=== PATIENT | female | born 1990 | race Hispanic/Latino ===

== ENCOUNTER 2018-01-19 20:51 | Emergency (ER) | payer MEDICAID ==
[~2018-01-19 20:51] MED LIST: ASPI-1197 PO; FURO20TA6 GT; LISI-617 PO; METO-391 PO; PREN1TAB26 PO
[2018-01-19] MEDS ORDERED: ACETAMINOPHEN 325 MG TAB ONE (20:59)
[2018-01-19 21:03] LABS: BASOPHILS % (AUTO) 0.4 % (0.0-5.0); EOSINOPHILS % (AUTO) 2.4 % (0.0-8.0); HEMATOCRIT 38.2 % (36-48); LYMPHOCYTES % (AUTO) 23.5 % (21.0-51.0); MEAN CORPUSCULAR HEMOGLOBIN 29.3 pg (27.0-33.0); MEAN CORPUSCULAR HGB CONC 34.6 g/dL (32.0-36.0); MEAN CORPUSCULAR VOLUME 84.9 fL (79-99); MONOCYTES % (AUTO) 8.6 % (3.0-13.0); NEUTROPHILS % (AUTO) 65.1 % (40.0-77.0); PLATELET COUNT (AUTO) 268 K/uL (130-400); RED CELL DISTRIBUTION WIDTH 13.4 % (11.0-15.5); WHITE BLOOD COUNT (AUTO) 9.3 K/uL (4.8-10.8)
[2018-01-19 21:09] LABS: APPEARANCE,URINE Cloudy (CLEAR); BILIRUBIN,URINE Negative (NEGATIVE); COLOR,URINE Yellow (YELLOW); GLUCOSE, URINE (UA) Negative (NEGATIVE); KETONES,URINE Negative (NEGATIVE); LEUKOCYTE ESTERASE ,URINE Large (NEGATIVE); NITRATE,URINE Negative (NEGATIVE); OCCULT BLOOD,URINE Small (NEGATIVE); PH,URINE 6.5 (5.0-8.0); PROTEIN,URINE Trace (NEGATIVE)
[2018-01-19 21:12] LABS: CREATININE 0.8 mg/dL (0.5-1.5)
[2018-01-19 21:12] LABS: HCG,QUAL RESULT NEGATIVE (NEGATIVE)
[2018-01-19 21:17] LABS: BACTERIA,URINE Few /HPF (None Seen); MUCUS,URINE Moderate LPF (None Seen); TRANSITIONAL EPI CELLS,URINE Few /HPF (None Seen)
[2018-01-19 21:18] LABS: ALBUMIN 4.3 g/dL (3.5-5.0); BILIRUBIN,TOTAL 0.5 mg/dL (0.2-1.0); TOTAL PROTEIN, SERUM 8.3 g/dL (6.0-8.3)
== END 2018-01-19 22:23 | disposition home or self-care (01) ==
LOC: EDH 20:51
DX: R07.9 Chest pain, unspecified (principal); I10 Essential (primary) hypertension; Z98.890 Other specified postprocedural states
CPT/HCPCS: 36415; 71046; 80053; 81001; 81025; 84484; 85025

== ENCOUNTER 2018-10-18 19:15 | Emergency (ER) | payer MEDICAID ==
[2018-10-18 19:50] LABS: RAPID GROUP A STREP NEGATIVE (NEGATIVE)
[2018-10-18 20:34] LABS: HCG,QUAL RESULT NEGATIVE (NEGATIVE)
[2018-10-18 20:38] LABS: APPEARANCE,URINE Clear (CLEAR); BILIRUBIN,URINE Negative (NEGATIVE); COLOR,URINE Yellow (YELLOW); GLUCOSE, URINE (UA) Negative (NEGATIVE); KETONES,URINE Negative (NEGATIVE); LEUKOCYTE ESTERASE ,URINE Negative (NEGATIVE); NITRATE,URINE Negative (NEGATIVE); OCCULT BLOOD,URINE Small (NEGATIVE); PH,URINE 6.5 (5.0-8.0); PROTEIN,URINE Negative (NEGATIVE); UROBILINOGEN,URINE 0.2 mg/dL (0.2-1.0)
[2018-10-18 21:00] LABS: BACTERIA,URINE Few /HPF (None Seen); RBC,URINE 0-1 /HPF (0-1); SQUAMOUS EPITHELIAL CELL,UR Few /HPF (0-2); WBC,URINE 0-1 /HPF (0-1)
== END 2018-10-18 21:08 | disposition home or self-care (01) ==
LOC: EDH 19:15
DX: J11.1 Influenza due to unidentified influenza virus with other respiratory manifestations (principal); R50.9 Fever, unspecified; I10 Essential (primary) hypertension; Z98.890 Other specified postprocedural states
CPT/HCPCS: 81001; 81025; 87804; 87880

== ENCOUNTER 2019-02-15 09:14 | Emergency (ER) | payer MEDICAID ==
[2019-02-15] MEDS ORDERED: ACETAMINOPHEN 325 MG TAB ONE (09:52)
[2019-02-15] MEDS ORDERED: ACETAMINOPHEN ELIXIR 650 MG/20.3 ML UDCUP ONE (09:54)
== END 2019-02-15 09:59 | disposition home or self-care (01) ==
LOC: EDH 09:14
DX: S93.432A Sprain of tibiofibular ligament of left ankle, initial encounter (principal); I10 Essential (primary) hypertension; Z98.890 Other specified postprocedural states; W22.8XXA Striking against or struck by other objects, initial encounter; Y93.6A Activity, physical games generally associated with school recess, summer camp and children; Y92.89 Other specified places as the place of occurrence of the external cause; Y99.8 Other external cause status
CPT/HCPCS: 73610

== ENCOUNTER 2019-09-29 19:44 | Emergency (ER) | payer MEDICAID ==
[2019-09-29 20:07] LABS: BASOPHILS % (AUTO) 0.8 % (0.0-5.0); EOSINOPHILS % (AUTO) 3.3 % (0.0-8.0); HEMATOCRIT 36.9 % (36-48); LYMPHOCYTES % (AUTO) 28.8 % (21.0-51.0); MEAN CORPUSCULAR HEMOGLOBIN 29.5 pg (27.0-33.0); MEAN CORPUSCULAR HGB CONC 34.7 g/dL (32.0-36.0); MONOCYTES % (AUTO) 10.2 % (3.0-13.0); NEUTROPHILS % (AUTO) 56.8 % (40.0-77.0); PLATELET COUNT (AUTO) 250 K/uL (130-400); RED BLOOD CELL COUNT(AUTO) 4.34 MIL/uL (4.00-5.50); RED CELL DISTRIBUTION WIDTH 12.3 % (11.0-15.5); WHITE BLOOD COUNT (AUTO) 9.3 K/uL (4.8-10.8)
[2019-09-29 20:22] LABS: CREATININE 0.7 mg/dL (0.5-1.5); POTASSIUM 3.8 mmol/L (3.5-5.1)
[2019-09-29 20:26] LABS: ALBUMIN 4.1 g/dL (3.5-5.0); BILIRUBIN,TOTAL 0.3 mg/dL (0.2-1.0); TOTAL PROTEIN, SERUM 7.9 g/dL (6.0-8.3)
[2019-09-29 20:28] LABS: APPEARANCE,URINE Turbid (CLEAR); BILIRUBIN,URINE Negative (NEGATIVE); COLOR,URINE Yellow (YELLOW); GLUCOSE, URINE (UA) Negative (NEGATIVE); KETONES,URINE Negative (NEGATIVE); LEUKOCYTE ESTERASE ,URINE Negative (NEGATIVE); NITRATE,URINE Negative (NEGATIVE); OCCULT BLOOD,URINE Negative (NEGATIVE); PH,URINE 8.5 (5.0-8.0); PROTEIN,URINE Trace mg/dL (NEGATIVE)
[2019-09-29 20:38] LABS: HCG,QUAL RESULT NEGATIVE (NEGATIVE)
[2019-09-29 20:49] LABS: AMORPHOUS SEDIMENT,UR Moderate /LPF (None Seen); BACTERIA,URINE Few /HPF (None Seen); SQUAMOUS EPITHELIAL CELL,UR Few /HPF (0-2)
== END 2019-09-30 00:11 | disposition home or self-care (01) ==
LOC: EDH 19:44
DX: R07.89 Other chest pain (principal); I10 Essential (primary) hypertension; Z79.899 Other long term (current) drug therapy; Z98.890 Other specified postprocedural states
CPT/HCPCS: 36415; 71045; 80053; 81001; 81025; 82550; 83690; 84484; 85025; 93005

== ENCOUNTER 2022-05-14 23:50 | Inpatient (IN) | payer MEDICAID ==
[~2022-05-14] VITALS: Ht 157.5 cm; Wt 84.8 kg
[~2022-05-14 23:50] MED LIST changes: -LISI-617 PO; +LISI5TAB21 PO
[2022-05-15 00:43] LABS: BASOPHILS % (AUTO) 0.6 % (0.0-5.0); EOSINOPHILS % (AUTO) 2.7 % (0.0-8.0); HEMATOCRIT 35.7 % (36-48); LYMPHOCYTES % (AUTO) 22.6 % (21.0-51.0); MEAN CORPUSCULAR HEMOGLOBIN 29.9 pg (27.0-33.0); MEAN CORPUSCULAR HGB CONC 35.3 g/dL (32.0-36.0); MEAN CORPUSCULAR VOLUME 84.8 fL (79-99); MONOCYTES % (AUTO) 9.9 % (3.0-13.0); NEUTROPHILS % (AUTO) 64.1 % (40.0-77.0); PLATELET COUNT (AUTO) 259 K/uL (130-400); RED BLOOD CELL COUNT(AUTO) 4.21 MIL/uL (4.00-5.50); RED CELL DISTRIBUTION WIDTH 12.1 % (11.0-15.5)
[2022-05-15 01:04] LABS: CREATININE 0.8 mg/dL (0.5-1.5); POTASSIUM 3.4 mmol/L (3.5-5.1)
[2022-05-15 01:10] LABS: ALBUMIN 4.2 g/dL (3.5-5.0); TOTAL PROTEIN, SERUM 7.4 g/dL (6.0-8.3)
[2022-05-15] MEDS ORDERED: NITROGLYCERIN 0.4 MG SL TAB SL PRN (02:30)
[2022-05-15] MEDS ORDERED: ACETAMINOPHEN 325 MG TAB PO PRN ×2 (02:30)
[2022-05-15] MEDS ORDERED: ONDANSETRON 4MG INJ IV PRN (02:30)
[2022-05-15] MEDS ORDERED: LACTULOSE 20 GM/30 ML UDCUP PO PRN (02:30)
[2022-05-15] MEDS ORDERED: LIDOCAINE HCL-MPF 1% 2ML VIAL IJ PRN (04:00)
[2022-05-15] MEDS ORDERED: KCL 20 MEQ ERTAB PO PRN (04:00)
[2022-05-15] MEDS ORDERED: POTASSIUM CHLORIDE 10% ELIXIR 20 MEQ/15 ML UDCUP PO PRN (04:00)
[2022-05-15] MEDS ORDERED: POTASSIUM CHLORIDE 10MEQ/100ML 100 ML IV PRN (04:00)
[2022-05-15] MEDS ORDERED: FAMOTIDINE 20MG TAB PO SCH (09:00)
[2022-05-15 13:17] VITALS: BP 100/59
== END 2022-05-15 14:19 | disposition left against medical advice (07) | DRG 198 ==
LOC: EDH 23:50 → EDHIP 23:51
PROVIDERS: ADMIT Hospitalist; ATTEND Hospitalist
DX: I24.9 Acute ischemic heart disease, unspecified (principal); I50.20 Unspecified systolic (congestive) heart failure; E87.1 Hypo-osmolality and hyponatremia; R07.89 Other chest pain; E66.9 Obesity, unspecified; E87.6 Hypokalemia; I34.0 Nonrheumatic mitral (valve) insufficiency; Z53.29 Procedure and treatment not carried out because of patient's decision for other reasons; D64.9 Anemia, unspecified; Z83.3 Family history of diabetes mellitus; Z82.5 Family history of asthma and other chronic lower respiratory diseases; Z82.49 Family history of ischemic heart disease and other diseases of the circulatory system; Z82.3 Family history of stroke; Z82.0 Family history of epilepsy and other diseases of the nervous system; Z68.34 Body mass index [BMI] 34.0-34.9, adult
CPT/HCPCS: 36415; 71045; 80053; 81025; 83880; 84484; 85025; 85378; 93005; G0378

== ENCOUNTER 2023-11-13 23:29 | Emergency (ER) | payer MEDICAID ==
[~2023-11-13] VITALS: Ht 157.5 cm; Wt 86.6 kg
[2023-11-13 23:57] LABS: ADD UA MICROSCOPIC YES; APPEARANCE,URINE CLOUDY (CLEAR); BILIRUBIN,URINE NEGATIVE (NEGATIVE); COLOR,URINE LIGHT-YELLOW (YELLOW); GLUCOSE, URINE (UA) NEGATIVE (NEGATIVE); KETONES,URINE NEGATIVE (NEGATIVE); LEUKOCYTE ESTERASE ,URINE 25 Leu/uL (NEGATIVE); NITRATE,URINE NEGATIVE (NEGATIVE); OCCULT BLOOD,URINE NEGATIVE (NEGATIVE); PROTEIN,URINE 10 mg/dL (NEGATIVE); UROBILINOGEN,URINE 0.2 mg/dL (0.2-1.0)
[2023-11-13 23:59] LABS: BACTERIA,URINE FEW /HPF (None Seen); MUCUS,URINE RARE LPF (None Seen); SQUAMOUS EPITHELIAL CELL,UR MANY /HPF (0-2)
[2023-11-13 23:59] LABS: BASOPHILS # (AUTO) 0.07 K/uL (0.00-0.20); BASOPHILS % (AUTO) 0.7 % (0.0-5.0); EOSINOPHILS # (AUTO) 0.42 K/uL (0.00-0.70); EOSINOPHILS % (AUTO) 4.1 % (0.0-8.0); IMMATURE GRANULOCYTE ABSOLUTE 0.05 K/uL (0-1); LYMPHOCYTES % (AUTO) 29.1 % (21.0-51.0); MEAN CORPUSCULAR HEMOGLOBIN 30.4 pg (27.0-33.0); MEAN CORPUSCULAR HGB CONC 35.8 g/dL (32.0-36.0); MEAN CORPUSCULAR VOLUME 84.9 fL (79-99); MONOCYTES % (AUTO) 10.2 % (3.0-13.0); NEUTROPHILS # (AUTO) 5.6 K/uL (1.8-7.7); NEUTROPHILS % (AUTO) 55.4 % (40.0-77.0); PLATELET COUNT (AUTO) 286 K/uL (130-400); RED BLOOD CELL COUNT(AUTO) 4.24 MIL/uL (4.00-5.50); RED CELL DISTRIBUTION WIDTH 12.5 % (11.0-15.5); WHITE BLOOD COUNT (AUTO) 10.1 K/uL (4.8-10.8)
[2023-11-14 00:07] LABS: CREATININE 0.7 mg/dL (0.5-1.0); POTASSIUM 3.7 mmol/L (3.5-5.1)
[2023-11-14 00:11] LABS: ALBUMIN 3.8 g/dL (3.5-5.0); BILIRUBIN,TOTAL 0.3 mg/dL (0.2-1.0); TOTAL PROTEIN, SERUM 7.7 g/dL (6.0-8.3)
[2023-11-14 03:43] VITALS: BP 113/65; PULSE 81; RESP 18; O2SAT 99
== END 2023-11-14 03:45 | disposition home or self-care (01) ==
LOC: EDH 23:29
DX: R07.89 Other chest pain (principal); Z79.82 Long term (current) use of aspirin; Z79.899 Other long term (current) drug therapy
CPT/HCPCS: 36415; 71045; 80053; 81001; 81025; 83735; 83880; 84484; 85025; 93005

== ENCOUNTER 2024-11-07 21:06 | Observation (INO) | payer MEDICAID ==
[~2024-11-07] VITALS: Ht 154.9 cm; Wt 82.3 kg
--- NOTE | 2024-11-07 11:05 | NUR ---
[facility] Consult: Patient assessed by wound healing team. See wound assessment. Assessment and recommendations provided to primary nurse. Education provided. Addendum: 11/08/24 at 1446 by DANTE WONG RN RN/ Amended: Links added.
[~2024-11-07 21:06] MED LIST changes: +SACU1TAB PO
[2024-11-07 21:34] LABS: BASOPHILS # (AUTO) 0.05 K/uL (0.00-0.20); BASOPHILS % (AUTO) 1.1 % (0.0-5.0); EOSINOPHILS # (AUTO) 0.31 K/uL (0.00-0.70); EOSINOPHILS % (AUTO) 6.6 % (0.0-8.0); HEMATOCRIT 28.4 % (36-48); IMMATURE GRANULOCYTE ABSOLUTE 0.03 K/uL (0-1); LYMPHOCYTES # (AUTO) 1.1 K/uL (1.0-4.8); LYMPHOCYTES % (AUTO) 23.3 % (21.0-51.0); MEAN CORPUSCULAR HEMOGLOBIN 28.9 pg (27.0-33.0); MEAN CORPUSCULAR HGB CONC 32.4 g/dL (32.0-36.0); MEAN CORPUSCULAR VOLUME 89.3 fL (79-99); MONOCYTES # (AUTO) 0.6 K/uL (0.1-1.0); MONOCYTES % (AUTO) 11.8 % (3.0-13.0); NEUTROPHILS # (AUTO) 2.6 K/uL (1.8-7.7); NEUTROPHILS % (AUTO) 56.6 % (40.0-77.0); PLATELET COUNT (AUTO) 242 K/uL (130-400); RED BLOOD CELL COUNT(AUTO) 3.18 MIL/uL (4.00-5.50); RED CELL DISTRIBUTION WIDTH 14.8 % (11.0-15.5); WHITE BLOOD COUNT (AUTO) 4.7 K/uL (4.8-10.8)
[2024-11-07 21:45] LABS: INR 1.13 (0.85-1.15); PROTHROMBIN TIME 11.8 SEC (9.6-11.6)
[2024-11-07 21:46] LABS: PARTIAL THROMBOPLASTIN TIME 29.9 SEC (26.3-35.5)
[2024-11-07 21:47] LABS: CREATININE 0.8 mg/dL (0.5-1.0); POTASSIUM 3.9 mmol/L (3.5-5.1)
[2024-11-07 21:55] LABS: B-TYPE NATRIURETIC PEPTIDE 115 pg/mL (0-100)
--- NOTE | 2024-11-07 22:16 | ERN ---
General Chief Complaint: Chest Pain Stated Complaint: C/O CP Time Seen by MD: 21:13 Time Seen by Midlevel: 21:13 Source: patient History of Present Illness Initial Comments Patient is a 34-year-old female with a past medical history of recurrent open heart surgeries presenting to the emergency department with intermittent chest pain that started today at 5:30 p.m.. She reports having an open heart surgery when she was 9 years old, another one in 2014, and the most recent one was on October 19, 2024. This last surgery was performed in [place]. She was unable to give me the exact surgery but states it was mitral valve related. Santiago is currently on Eliquis 5 mg and metoprolol Allergies: Coded Allergies: No Known Drug Allergies (Unverified Allergy, Unknown, 05/02/14) Home Meds Reported Medications Atorvastatin Calcium (Atorvastatin Calcium) 20 Mg Tablet, 1 TAB PO HS for 30 Days, #30 TAB 0 Refills 11/08/24 Furosemide (Furosemide) 20 Mg Tablet, 1 TAB PO QODAY for 30 Days, #30 TAB 0 Refills 11/08/24 Amiodarone HCl (Amiodarone HCl) 100 Mg Tablet, 1 TAB PO DAILY for 30 Days, #30 TAB 0 Refills 11/08/24 Metoprolol Tartrate (Metoprolol Tartrate) 25 Mg Tablet, 1 TAB PO BID for 30 Days, #60 TAB 0 Refills 11/08/24 Apixaban (Eliquis) 5 Mg Tablet, 1 TAB PO BID for 30 Days, #60 TAB 0 Refills 11/08/24 Discontinued Reported Medications Sacubitril/Valsartan (Entresto 24 mg-26 mg Tablet) 24 Mg-26 Mg Tablet, 1 TAB PO BID for 30 Days, #60 TAB 0 Refills 09/21/24 Vit/Iron Fumarate/FA ( Vitamins Tablet) 1 Each Tablet, 1 EACH PO DAILY, TAB 09/30/15 Discontinued Scripts Metoprolol Succinate (Metoprolol Succinate) 50 Mg Tab.er.24h, 50 MG PO BID, #60 TAB Prov:MEDHAT ROSS MD 05/07/14 Furosemide (Lasix 20Mg Tab) 20 Mg Tablet, 20 MG GT DAILY, #30 TAB Prov:MEDHAT ROSS MD 05/07/14 Lisinopril (Lisinopril) 5 Mg Tablet, 5 MG PO DAILY, #30 TAB Prov:MEDHAT ROSS MD 05/07/14 Aspirin (Aspirin) 81 Mg Tab.chew, 81 MG PO DAILY, #30 TAB.CHEW Prov:MEDHAT ROSS MD 05/07/14 Past Medical History Past Medical History: Heart Disease, Other Medical History Other: HX OF OPEN HEART X 3 Past Surgical History: Other Surgical History Other: OPEN HEART SX (2014) Family History Family History: HTN Social History Social History: Negative, Lives with family Female( History) LMP: Oct 24, 2024 ROS Dictation CONSTITUTIONAL: Negative except for HPI HEAD/FACE: Negative except for HPI EENT: Negative except for HPI RESPIRATORY: Negative except for HPI GASTROINTESTINAL/ABDOMINAL: Negative except for HPI GENITOURINARY: Negative except for HPI MUSCULOSKELETAL: Negative except for HPI INTEGUMENTARY: Negative except for HPI NEUROLOGICAL/PSYCH: Negative except for HPI HEMATOLOGIC/LYMPHATIC: Negative except for HPI All Systems Negative, Except as noted above. 13 point review of systems assessed and all negative except for above. Physical Exam Physical Exam Dictation Vital Signs reviewed General Appearance: Alert, oriented x 3, no acute distress, well developed, nourished. Head and Face: non-traumatic. Eyes: PERRL, pink conjunctivas, eyelid no trauma, anterior chamber with arcus senilis. Ears: Pinnas intact and no signs of trauma or erythema ear canals clear and no discharge TM no erythema Nose: No discharge, no bleeding. Oropharynx: Mouth normal, tongue pink, pharynx clear,no erythema, tonsils no exudates, no abscesses noted, mucous membrane moist Neck: Supple, non-tender, no thyromegaly, no masses, no JVD, no bruits Breast:Deferred Chest:No tenderness, no crepitus, no paradoxical movement, no retractions Lungs:Clear, well-ventilated, symmetric, no rales, no wheezing, no rhonchi, no stridor, good breath sounds bilaterally Heart: Regular rate, regular rhythm, no murmur, no gallops Vascular: no peripheral edema, Abdomen: Soft, positive bowel sounds, nondistended, no guarding, nontender, no rebound, no masses no hepatomegaly, no splenomegaly, no Harley's sign, no hernias. Rectal: Deferred Genital: Deferred Neurological: Normal speech, motor function intact, sensory function intact Musculoskeletal: Neck nontender, full range of motion, back nontender, full range of motion, Extremities: nontender, full range of motion Skin: Color pink, dry, no turgor, no rash, no lacerations, no abrasions, no contusions. Lymphatic: Deferred Results Laboratory and Microbiology Lab and Micro Result Labs Reviewed?: Yes MDM MDM: Differential diagnosis: Pneumonia, acute coronary syndrome, pulmonary edema, postsurgical complication, mitral valve disorder Rationale: Tests considered and ordered secondary to shared decision making include: Previous outside records reviewed: Old ER visits. Risk of complication and/or morbidity or mortality of patient management: None Medications-Per medication reconciliation Need for hospitalization: Patient does meet criteria for hospitalization. Need for emergency major/minor surgery: No There are no social concerns with this patient. Prescription drug management Prescriptions will include symptomatic care Patient's prior external medical records from other ER visits were reviewed by me as indicated. Prior testing and results from previous visits were reviewed. Prior tests were taken into account with medical decision making and resource utilization, independent historian/historians were used to obtain complete medical history. I independently interpreted the test that were performed, results were reviewed by me and considered findings on radiology if ordered. Medical management and examination interpretation discussions were had by me with other qualified healthcare professionals as indicated for the patient's care. ED Course [place] [id number] [address] IMAGING REPORT Signed PATIENT: MUSTAPHA SEARS MR#: [id number] : 1990 SEX: F AGE: 34 LOCATION: [facility] ORDER 24 STATUS: REG ER REPORT#: [id number] SERVICE 19 REASON: palpitations, cp ORDERING PHYSICIAN: ELIAN COLEY PROCEDURE: CXR1VW - CHEST 1VW CHEST 1VW HISTORY: Palpitations COMPARISON: 09/20/2024 FINDINGS: A frontal projection of the chest was obtained. Mild right lower lung pulmonary infiltrates are seen with right pleural effusion. Poststernotomy changes are seen. The heart is enlarged. Degenerative changes of the thoracolumbar spine are present. No evidence of aortic calcification is seen. IMPRESSION: 1. Mild right lower lung pulmonary infiltrates with small right pleural effusion with compressive atelectasis. DICTATED BY: ODILIA GALAVIZ MD DATE: 11/07/242234 ELECTRONICALLY SIGNED BY: ODILIA GALAVIZ MD DATE: 11/07/242237 DX & DISP Disposition: Inpatient Departure Impression: Primary Impression: Chest pain Additional Impressions: Mitral Valve Disorder, Pleural effusion, right Condition: Stable Referrals: JING MAYFIELD (PCP) I have reviewed the case, and I agree with, Diagnosis and Plan I performed the substantive portion of the visit. I have reviewed and personally made and approve the management plan that is documented in the note by myself or the ROLA. I acknowledge for responsibility for the patient's management plan. ELIAN COLEY Nov 07, 2024 22:16
--- NOTE | 2024-11-07 22:38 | HMCIMG ---
CHEST 1VW HISTORY: Palpitations COMPARISON: 09/20/2024 FINDINGS: A frontal projection of the chest was obtained. Mild right lower lung pulmonary infiltrates are seen with right pleural effusion. Poststernotomy changes are seen. The heart is enlarged. Degenerative changes of the thoracolumbar spine are present. No evidence of aortic calcification is seen. IMPRESSION: 1. Mild right lower lung pulmonary infiltrates with small right pleural effusion with compressive atelectasis.
--- NOTE | 2024-11-07 23:24 | HP ---
[facility] Date of Service: Nov 07, 2024 Time of Service: 23:24 PCP: Sekou Klein HISTORY OF PRESENT ILLNESS: This is a 34-year-old female with past medical history of congenital heart defect, mitral valve regurgitation, congestive heart failure, atrial fibrillation, hyperlipidemia and hypertension who presents to the ED for complaints of intermittent chest pain which started at 5:30pm today while sitting down.Patient described pain started at her mid upper back and goes through her right chest and it is sharp in nature.Patient reports she underwent a minimally invasive cardiac surgery for mitral valve repair on 10/19/2024 in [place].Patient also reports he was seen at her plumbing service technician last Tuesday ,2 days ago and checked her surgical incision sites and was told to apply antibiotic ointment,there are is red and oozing a scanty serous drain on her right upper quadrant under breast and left groin area.Patient also reports since surgery she has been having occasional dry cough and shortness of breath and she also mentioned she is not doing the Incentive Spirometry as she is supposed to. Seen and examined patient in the ER awake,alert,and coherent,appears comfortable.Patient denies fever,chills,nausea,vomiting and abdominal pain. Vital signs temperature 99.7, heart rate 94, blood pressure 168/83 saturation 99% on room air. Labs WBC 4.7, hemoglobin 9.2, hematocrit 28 and platelet count 242. Chemistries normal BNP 115 troponin 19. Urinalysis appears cloudy and with few bacteria and urine WBC 2-5. Chest x-ray result revealed mild right lower lung pulmonary infiltrates with small right pleural effusion with compressive atelectasis. While in the ER patient received Rocephin 1 g IV. We will admit patient for further medical management. REVIEW OF SYSTEMS CONSTITUTIONAL: Denies fevers, chills, or night sweats. No unintentional weight loss reported. NEUROLOGICAL: Denies headache, amaurosis fugax, motor weakness, sensory deficit, vertigo/spinning sensation, gait abnormalities, or tremors. ENT: No hearing loss, otalgia, otorrhea, rhinitis, rhinorrhea, hoarseness, or sore throat. CARDIOVASCULAR: Patient complain of chest pain coming from mid upper back towards anterior chest Denies dyspnea on exertion, orthopnea, paroxysmal nocturnal dyspnea, palpitations, life-threatening arrhythmias, claudication. PULMONARY: Occasional dry cough and shortness of breaths Denies phlegm/sputum, hemoptysis, pleuritic chest pain. SLEEP: Denies morning headaches, daytime somnolence or napping. Denies difficulty falling asleep, staying asleep, waking from sleep. Denies knowledge of snoring. GASTROINTESTINAL: Denies any type of dysphagia to either liquids or solids. Denies nausea, vomiting, pyrosis, early satiety, abdominal pain, diarrhea, constipation, or changes in stool consistency or caliber. Denies coffee-ground emesis, hematemesis, hematochezia, or melanotic stools. GENITOURINARY: Denies frequency, urgency, nocturia, hematuria or incontinence (Storage/Irritative symptoms.) Low urinary stream, straining to void, urinary intermittency or hesitancy, splitting of the voiding stream, terminal dribbling. ENDOCRINOLOGIC: Denies polyuria, polydipsia, polyphagia or heat/cold intolerances. HEMATOLOGIC: Denies thrombophilia/previous clots, or coagulopathy/bleeding disorders. ONCOLOGIC: Denies personal history of malignancy. DERMATOLOGIC: Denies rashes or pruritus. PSYCHIATRIC: Denies any suicidal or homicidal ideation. Denies hallucinations. 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 Patient denies alcohol tobacco and recreational drug use FAMILY HISTORY: Hypertension Coded Allergies: No Known Drug Allergies (Unverified Allergy, Unknown, 05/02/14) PHYSICAL EXAM GENERAL APPEARANCE: The patient is awake, alert, and oriented, in no acute cardiopulmonary distress. NEUROLOGICAL: Cranial nerves II-XII grossly intact. Motor is 5/5 in bilateral upper and lower extremities proximal to distal. No sensory deficits. HEENT: Face is symmetric. Pupils are equal and reactive. Extraocular movements are intact. NECK: Supple. No JVD. No thyromegaly. No submental, submandibular, pre- /postauricular, occipital or supraclavicular lymphadenopathy. CHEST: Normal chest expansion. No Telemetry. LUNGS: Absence of any rales, rhonchi or any wheezing. CARDIOVASCULAR: Regular. S1 and S2 normal. No appreciable rubs, murmurs or gallops. ABDOMEN: Soft, nontender, and nondistended. There is no rebound, voluntary guarding, or rigidity. : Deferred. No Grant. EXTREMITIES: Non-edematous and not cyanotic. No clubbing. Good capillary refill. SKIN: No skin breakdown. Vital Sign (Last 24 Hours) 11/07/24 21:09 Temp 99.7 Pulse 94 Resp 20 B/P (MAP) 168/83 Pulse Ox 99 O2 Delivery Room Air LABS: Laboratory: Test 11/07/24 21:26 Range/Units White Blood Count 4.7 L 4.8-10.8 K/uL Red Blood Count 3.18 L 4.00-5.50 MIL/uL Hemoglobin 9.2 L 12.0-16.0 g/dL Hematocrit 28.4 L 36-48 % Mean Corpuscular Volume 89.3 79-99 fL Mean Corpuscular Hemoglobin 28.9 27.0-33.0 pg Mean Corpuscular Hemoglobin Concent 32.4 32.0-36.0 g/dL Red Cell Distribution Width 14.8 11.0-15.5 % Platelet Count 242 130-400 K/uL Mean Platelet Volume 8.7 7.5-10.5 fL Immature Granulocyte % (Auto) 0.6 0-1 % Neutrophils (%) (Auto) 56.6 40.0-77.0 % Lymphocytes (%) (Auto) 23.3 21.0-51.0 % Monocytes (%) (Auto) 11.8 3.0-13.0 % Eosinophils (%) (Auto) 6.6 0.0-8.0 % Basophils (%) (Auto) 1.1 0.0-5.0 % Neutrophils # (Auto) 2.6 1.8-7.7 K/uL Lymphocytes # (Auto) 1.1 1.0-4.8 K/uL Monocytes # (Auto) 0.6 0.1-1.0 K/uL Eosinophils # (Auto) 0.31 0.00-0.70 K/uL Basophils # (Auto) 0.05 0.00-0.20 K/uL Absolute Immature Granulocyte (auto 0.03 0-1 K/uL Nucleated Red Blood Cells 0.0 0.0-0.19 % Prothrombin Time 11.8 H 9.6-11.6 SEC Prothromb Time International Ratio 1.13 0.85-1.15 Activated Partial Thromboplast Time 29.9 26.3-35.5 SEC Sodium Level 139 136-145 mmol/L Potassium Level 3.9 3.5-5.1 mmol/L Chloride Level 103 101-111 mmol/L Carbon Dioxide Level 30 21-32 mmol/L Blood Urea Nitrogen 8 7-18 mg/dL Creatinine 0.8 0.5-1.0 mg/dL Glomerular Filtration Rate Calc 98 >90 mL/min Random Glucose 97 70-105 mg/dL Total Calcium 8.8 8.5-10.1 mg/dL Magnesium Level 2.00 1.80-2.40 mg/dL Total Creatine Kinase 44 # 21-232 U/L Troponin I High Sensitivity 19.6 4-50 ng/L B-Type Natriuretic Peptide 115 H 0-100 pg/mL DIAGNOSTICS / RADIOLOGY: [ ] ASSESSMENT: Chest pain unspecified POA Right pleural effusion POA Suspected community-acquired pneumonia POA Acute urinary tract infection POA Acute normocytic normochromic anemia POA CHF POA Recent minimally invasive mitral valve repair POA Hypertension POA Hyperlipidemia POA Atrial fibrillation on Eliquis POA Morbid obesity POA Erythema and draining serous to Post operative surgical incision sites History of genital heart defect POA PLAN: We will admit patient in medical telemetry We will keep patient nothing by mouth We will start NS @ 100 ml / hr and re evaluate We will start patient on Rocephin 1 g IV daily for empiric coverage We will start Lasix 20 mg IV daily We will start on metoprolol 20 mg p.o. b.i.d. We will start on Famotidine 20 mg p.o. bid for GI prophylaxis We will replace electrolytes as needed per protocol We will add prn medication for fever,pain,cough ,nausea and vomiting We will reconcile home meds once medlist available Encourage incentive spirometry every hour times 10 while awake Daily weight strict I&O Fluid restriction 1.5 L per day We will trend troponin q.6 x2 We will obtain echocardiogram We will seek Cardiology consultation We will seek wound care eval We will request labs in am Further orders to follow depending on above results Case discussed with attending physician and came up with above treatment and plan of care. ADVANCED CARE PLANNING 1. Which of the following were discussed? Hospice Care - No Therapeutic options - Yes Advance Directives - No Other discussions - 2. Discussed with who? Patient 3. Voluntary nature of this service was explained to the patient? Yes 4. Amount of time spent - _22 5. Reviewed by Physician? (if this service was performed by NPP) Yes Patient seen and examined by me. Agree with note by WOOD TYPE FINISHER SEE ADDITIONAL ORDERS PER CHART DISCUSSED WITH NURSING STAFF LEILA ARIAS DYNAMIC BALANCER Nov 07, 2024 23:24
[2024-11-07 23:35] LABS: AMPHET/METH SCREEN,URINE NEGATIVE (NEGATIVE); BARBITURATE SCREEN, URINE NEGATIVE (NEGATIVE); BENZODIAZEPINES SCREEN,URINE NEGATIVE (NEGATIVE); CANNABINOID SCREEN,URINE NEGATIVE (NEGATIVE); COCAINE SCREEN,URINE NEGATIVE (NEGATIVE); OPIATE SCREEN,URINE NEGATIVE (NEGATIVE); PHENCYCLIDINE SCREEN,URINE NEGATIVE (NEGATIVE)
--- NOTE | 2024-11-08 | NUR ---
assumed care of patient at this time
[2024-11-08] MEDS: cefTRIAXone 1G VIAL IV SCH (00:30)
[2024-11-08] MEDS ORDERED: ondanSETRON 4MG INJ IV PRN (00:30)
[2024-11-08] MEDS ORDERED: PoTASSium chloRIDE 20MEQ/100ML 100 ML IV PRN (00:30)
[2024-11-08] MEDS: cefTRIAXone 1G VIAL IV ONE (00:30)
[2024-11-08] MEDS ORDERED: PoTASSium chloRIDE 20MEQ ER 20 MEQ ERTAB PO PRN ×2 (00:30→15:30)
[2024-11-08] MEDS ORDERED: acetaMINOPHEN 325 MG TAB PO PRN ×2 (00:30)
[2024-11-08] MEDS ORDERED: NITROGLYCERIN 0.4 MG SL TAB SL PRN (00:30)
[2024-11-08] MEDS ORDERED: PoTASSium chl 10% ELIXIR 20MEQ 20 MEQ/15 ML UDCUP PO PRN ×2 (00:30→15:30)
[2024-11-08] MEDS ORDERED: MAGNESIUM 2GM PREMIX 50ML 50 ML IV PRN ×2 (00:30→15:30)
[2024-11-08] MEDS ORDERED: FURO20TA4 PO (00:54)
[2024-11-08] MEDS ORDERED: METO25TA6 PO (00:54)
[2024-11-08] MEDS ORDERED: AMIO100T4 PO (00:54)
[2024-11-08] MEDS ORDERED: APIX5TAB PO (00:54)
[2024-11-08] MEDS ORDERED: ATOR20TA65 PO (00:54)
[2024-11-08] MEDS: AZITHROMYCIN 500MG+NS 250ML 250 ML IVPB SCH (01:06)
[2024-11-08 07:31] LABS: BASOPHILS # (AUTO) 0.03 K/uL (0.00-0.20); BASOPHILS % (AUTO) 0.6 % (0.0-5.0); EOSINOPHILS # (AUTO) 0.26 K/uL (0.00-0.70); EOSINOPHILS % (AUTO) 5.5 % (0.0-8.0); HEMATOCRIT 29.1 % (36-48); IMMATURE GRANULOCYTE ABSOLUTE 0.03 K/uL (0-1); LYMPHOCYTES % (AUTO) 20.4 % (21.0-51.0); MEAN CORPUSCULAR HGB CONC 30.9 g/dL (32.0-36.0); MEAN CORPUSCULAR VOLUME 90.7 fL (79-99); MONOCYTES # (AUTO) 0.6 K/uL (0.1-1.0); MONOCYTES % (AUTO) 12.4 % (3.0-13.0); NEUTROPHILS # (AUTO) 2.9 K/uL (1.8-7.7); NEUTROPHILS % (AUTO) 60.5 % (40.0-77.0); PLATELET COUNT (AUTO) 220 K/uL (130-400); RED BLOOD CELL COUNT(AUTO) 3.21 MIL/uL (4.00-5.50); WHITE BLOOD COUNT (AUTO) 4.8 K/uL (4.8-10.8)
--- NOTE | 2024-11-08 07:39 | EKG ---
[facility] Test Date: 2024-11-07 Test Time: 21:10:33 Pat Name: MUSTAPHA SEARS Department: [facility] Room: 319 Gender: F [employer] Maker: [id number] : 1990 Requested By: ELIAN COLEY Order Number: [id number] Reading MD: Tc Abbott Measurements Intervals [place] Rate: 88 P: -72 AL: 116 QRS: 107 QRSD: 111 T: 86 QT: 405 QTc: 491 Interpretive Statements Sinus or ectopic atrial rhythm Nonspecific repol abnormality, diffuse leads Compared to ECG 09/20/2024 17:48:15 Ectopic atrial rhythm now present Early repolarization now present Sinus rhythm no longer present T-wave abnormality no longer present Possible ischemia no longer present Electronically Signed On 11-09-2024 14:50:17 CDT by Tc Abbott Please click the below link to view image of tracing.
[2024-11-08 07:40] LABS: % IRON SATURATION 13.8 % (22-44)
[2024-11-08 07:58] LABS: B-TYPE NATRIURETIC PEPTIDE 109 pg/mL (0-100)
[2024-11-08 08:01] LABS: ALBUMIN 3.3 g/dL (3.5-5.0); BILIRUBIN,TOTAL 0.4 mg/dL (0.2-1.0); CREATININE 0.8 mg/dL (0.5-1.0); POTASSIUM 4.3 mmol/L (3.5-5.1); THYROID STIMULATING HORMONE 2.63 uIU/mL (0.36-3.74)
[2024-11-08] MEDS: metoPROLOL tartRATE 25 MG TAB PO SCH ×2 (08:53→21:05)
[2024-11-08] MEDS: FAMOTIDINE 20MG VIAL IV SCH (08:53)
[2024-11-08] MEDS: furoSEMIDE 20MG VIAL IV SCH (08:53)
--- NOTE | 2024-11-08 10:05 | NUR ---
[facility] DR SUBRAMANIAN MADE AWARE OF PT
--- NOTE | 2024-11-08 10:32 | NUR ---
DCP: HOME met with pt and sister Rina [phone] at bedside. Pt reports she had heart surgery in [place] on 10/19. Pt and her 3 kids 18,13,9 are currently staying with her mother Yee Davila [phone] while she recovers. Pt states family assists her as needed at this time with her ADLS. Pt uses no DME or in home care services. PCP is Julia Sapp and uses [facility] for her rx. Pt states she will return to her mother's at dc Addendum: 11/08/24 at 1037 by MYRON UP Amended: Links added.
--- NOTE | 2024-11-08 11:32 | NUR ---
CARDIOLOGY CONSULT RENETTA CARDOZO FOR DR FATUMA HAMPTON. FROM HIS POINT OF VIEW THE PATIENT CAN BE DISCHARGED AND MAKE A FOLLOW UP APPOINTMENT WITH THEM.
--- NOTE | 2024-11-08 14:50 | NUR ---
1ST ATTEMPT AT CALLING REPORT
--- NOTE | 2024-11-08 15:15 | NUR ---
REPORT GIVEN TO NURSE MCNAIR
--- NOTE | 2024-11-08 15:17 | PN ---
[facility] PROGRESS NOTE Date of Service: Nov 08, 2024 Time of Service: 15:12 SUBJECTIVE: This is a 34-year-old female with past medical history of congenital heart defect, mitral valve regurgitation, congestive heart failure, atrial fibrillation, hyperlipidemia and hypertension who presented to the ED for complaints of intermittent chest pain. Patient reported she underwent a minimally invasive cardiac surgery for mitral valve repair on 10/19/2024 in [place]. 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 There are is red and oozing a scanty serous drain on her right upper quadrant under breast and left groin area. Patient also reported since surgery she has been having occasional dry cough and shortness of breath and she also mentioned she is not doing the Incentive Spirometry as she is supposed to do. 11/08 patient is seen and examined at bedside, case discussed with the RN, no acute events overnight, patient alert oriented x3, comfortably in the stretcher, getting IV antibiotics. BP 121/58, afebrile, saturating normal on room air. He moglobin 9.0, hematocrit 29.1. Chest x-ray showing mild right lower lobe pulmonary infiltrates with small right pleural effusion with compressive atelectasis. Echocardiogram pending. REVIEW OF SYSTEMS CONSTITUTIONAL: Denies fevers, chills, or night sweats. No unintentional weight loss reported. NEUROLOGICAL: Denies headache, amaurosis fugax, motor weakness, sensory deficit, vertigo/spinning sensation, gait abnormalities, or tremors. ENT: No hearing loss, otalgia, otorrhea, rhinitis, rhinorrhea, hoarseness, or sore throat. CARDIOVASCULAR: Patient complain of chest pain coming from mid upper back towards anterior chest Denies dyspnea on exertion, orthopnea, paroxysmal nocturnal dyspnea, palpitations, life-threatening arrhythmias, claudication. PULMONARY: Occasional dry cough and shortness of breaths Denies phlegm/sputum, hemoptysis, pleuritic chest pain. SLEEP: Denies morning headaches, daytime somnolence or napping. Denies difficulty falling asleep, staying asleep, waking from sleep. Denies knowledge of snoring. GASTROINTESTINAL: Denies any type of dysphagia to either liquids or solids. Denies nausea, vomiting, pyrosis, early satiety, abdominal pain, diarrhea, constipation, or changes in stool consistency or caliber. Denies coffee-ground emesis, hematemesis, hematochezia, or melanotic stools. GENITOURINARY: Denies frequency, urgency, nocturia, hematuria or incontinence (Storage/Irritative symptoms.) Low urinary stream, straining to void, urinary intermittency or hesitancy, splitting of the voiding stream, terminal dribbling. ENDOCRINOLOGIC: Denies polyuria, polydipsia, polyphagia or heat/cold intolerances. HEMATOLOGIC: Denies thrombophilia/previous clots, or coagulopathy/bleeding disorders. ONCOLOGIC: Denies personal history of malignancy. DERMATOLOGIC: Denies rashes or pruritus. PSYCHIATRIC: Denies any suicidal or homicidal ideation. Denies hallucinations. PHYSICAL EXAM GENERAL APPEARANCE: The patient is awake, alert, and oriented, in no acute cardiopulmonary distress. NEUROLOGICAL: Cranial nerves II-XII grossly intact. Motor is 5/5 in bilateral upper and lower extremities proximal to distal. No sensory deficits. HEENT: Face is symmetric. Pupils are equal and reactive. Extraocular movements are intact. NECK: Supple. No JVD. No thyromegaly. No submental, submandibular, pre- /postauricular, occipital or supraclavicular lymphadenopathy. CHEST: Normal chest expansion. No Telemetry. LUNGS: Absence of any rales, rhonchi or any wheezing. CARDIOVASCULAR: Regular. S1 and S2 normal. No appreciable rubs, murmurs or gallops. ABDOMEN: Soft, nontender, and nondistended. There is no rebound, voluntary guarding, or rigidity. : Deferred. No Grant. EXTREMITIES: Non-edematous and not cyanotic. No clubbing. Good capillary refill. SKIN: No skin breakdown. Vital Signs (last 8hr) Date Time Temp Pulse Resp B/P (MAP) Pulse Ox O2 Delivery O2 Flow Rate FiO2 11/08/24 09:30 98.6 78 20 121/58 98 Room Air* 0 21 11/08/24 07:21 98.6 69 20 120/52 96 Room Air* 0 21 LABS: Laboratory: Test 11/08/24 07:13 11/07/24 23:21 11/07/24 21:26 Range/Units White Blood Count 4.8 4.8-10.8 K/uL Red Blood Count 3.21 L 4.00-5.50 MIL/uL Hemoglobin 9.0 L 12.0-16.0 g/dL Hematocrit 29.1 L 36-48 % Mean Corpuscular Volume 90.7 79-99 fL Mean Corpuscular Hemoglobin 28.0 27.0-33.0 pg Mean Corpuscular Hemoglobin Concent 30.9 L 32.0-36.0 g/dL Red Cell Distribution Width 15.0 11.0-15.5 % Platelet Count 220 130-400 K/uL Mean Platelet Volume 8.9 7.5-10.5 fL Immature Granulocyte % (Auto) 0.6 0-1 % Neutrophils (%) (Auto) 60.5 40.0-77.0 % Lymphocytes (%) (Auto) 20.4 L 21.0-51.0 % Monocytes (%) (Auto) 12.4 3.0-13.0 % Eosinophils (%) (Auto) 5.5 0.0-8.0 % Basophils (%) (Auto) 0.6 0.0-5.0 % Neutrophils # (Auto) 2.9 1.8-7.7 K/uL Lymphocytes # (Auto) 1.0 1.0-4.8 K/uL Monocytes # (Auto) 0.6 0.1-1.0 K/uL Eosinophils # (Auto) 0.26 0.00-0.70 K/uL Basophils # (Auto) 0.03 0.00-0.20 K/uL Absolute Immature Granulocyte (auto 0.03 0-1 K/uL Nucleated Red Blood Cells 0.0 0.0-0.19 % Red Blood Cell Morphology See comments Sodium Level 138 136-145 mmol/L Potassium Level 4.3 3.5-5.1 mmol/L Chloride Level 104 101-111 mmol/L Carbon Dioxide Level 29 21-32 mmol/L Blood Urea Nitrogen 6 L 7-18 mg/dL Creatinine 0.8 0.5-1.0 mg/dL Glomerular Filtration Rate Calc 98 >90 mL/min Random Glucose 82 70-105 mg/dL Total Calcium 8.6 8.5-10.1 mg/dL Iron Level 42 L 50-170 mcg/dL Total Iron Binding Capacity 303 250-450 mcg/dL Percent Iron Saturation 13.8 L 22-44 % Total Bilirubin 0.4 0.2-1.0 mg/dL Aspartate Amino Transf (AST/SGOT) 15 10-37 U/L Alanine Aminotransferase (ALT/SGPT) 17 12-78 U/L Alkaline Phosphatase 84 50-136 U/L Troponin I High Sensitivity 20 4-50 ng/L B-Type Natriuretic Peptide 109 H 0-100 pg/mL Total Protein 7.0 6.0-8.3 g/dL Albumin 3.3 L 3.5-5.0 g/dL Triglycerides Level 83 30-200 mg/dL Cholesterol Level 97 <200 mg/dL LDL Cholesterol 55 0-99 mg/dL HDL Cholesterol 35 35-85 mg/dL Thyroid Stimulating Hormone (TSH) 2.63 # 0.36-3.74 uIU/mL Urine Opiates Screen NEGATIVE NEGATIVE Urine Barbiturates Screen NEGATIVE NEGATIVE Urine Phencyclidine Screen NEGATIVE NEGATIVE Urine Amphetamines Screen NEGATIVE NEGATIVE Urine Benzodiazepines Screen NEGATIVE NEGATIVE Urine Cocaine Screen NEGATIVE NEGATIVE Urine Marijuana (THC) Screen NEGATIVE NEGATIVE Prothrombin Time 11.8 H 9.6-11.6 SEC Prothromb Time International Ratio 1.13 0.85-1.15 Activated Partial Thromboplast Time 29.9 26.3-35.5 SEC Magnesium Level 2.00 1.80-2.40 mg/dL Total Creatine Kinase 44 # 21-232 U/L Current Medications Medications (Trade) Dose Ordered Sig/Shae Route PRN Reason Start Time Stop Time Status Last Admin Dose Admin Acetaminophen (TYLenol 325MG TAB) 650 mg Q4H PRN PO MILD PAIN (1-3) 11/08/24 00:30 12/08/24 00:29 Acetaminophen (TYLenol 325MG TAB) 650 mg Q6H PRN PO TEMPERATURE GREATER THAN 101.5 11/08/24 00:30 12/08/24 00:29 Azithromycin 250 ml @ 250 mls/hr Q24H IVPB 11/08/24 00:30 11/18/24 00:29 11/08/24 01:06 250 MLS/HR Ceftriaxone Sodium (ROCEphine 1G INJ) 1 gm Q24H IV 11/08/24 00:30 11/18/24 00:29 Famotidine (Pepcid 20mg Vial) 20 mg BID IV 11/08/24 09:00 12/08/24 08:59 11/08/24 08:53 20 MG Furosemide (LASix 20MG VIAL) 20 mg DAILY IV 11/08/24 09:00 12/08/24 08:59 11/08/24 08:53 20 MG Leptospermum Honey (Medihoney) 1 APPLY TOPICAL DAILY DAILY TP 11/09/24 09:00 12/09/24 08:59 Magnesium Sulfate 50 ml @ 0 mls/hr PROTOCOL PRN IV OTHER [SEE ORDER COMMENTS] 11/08/24 00:30 12/08/24 00:29 Metoprolol Tartrate (loprESSOR) 25 mg BID PO 11/08/24 09:00 12/08/24 08:59 11/08/24 08:53 25 MG Nitroglycerin (Nitrostat) 0.4 mg PROTOCOL PRN SL CHEST PAIN 11/08/24 00:30 12/08/24 00:29 Ondansetron HCl (zoFRAN 4MG INJ) 4 mg Q6H PRN IV NAUSEA/VOMITING 11/08/24 00:30 12/08/24 00:29 Potassium Chloride 100 ml @ 100 mls/hr AD PRN IV POTASSIUM PROTOCOL 11/08/24 00:30 12/08/24 00:29 Potassium Chloride (K-Dur/Klor-Con 20meq) 20 meq AD PRN PO POTASSIUM PROTOCOL 11/08/24 00:30 12/08/24 00:29 Potassium Chloride (KCl 10% Elixir 20meq/15ml) 20 meq AD PRN PO POTASSIUM PROTOCOL 11/08/24 00:30 12/08/24 00:29 DIAGNOSTICS / RADIOLOGY: [ ] CHEST 1VW HISTORY: Palpitations COMPARISON: 09/20/2024 FINDINGS: A frontal projection of the chest was obtained. Mild right lower lung pulmonary infiltrates are seen with right pleural effusion. Poststernotomy changes are seen. The heart is enlarged. Degenerative changes of the thoracolumbar spine are present. No evidence of aortic calcification is seen. IMPRESSION: 1. Mild right lower lung pulmonary infiltrates with small right pleural effusion with compressive atelectasis. ASSESSMENT: Chest pain unspecified POA Right pleural effusion POA Suspected community-acquired pneumonia POA Acute urinary tract infection POA Acute normocytic normochromic anemia POA CHF POA Recent minimally invasive mitral valve repair POA Hypertension POA Hyperlipidemia POA Atrial fibrillation on Eliquis POA Morbid obesity POA Erythema and draining serous to Post operative surgical incision sites History of genital heart defect POA PLAN: Patient to be admitted to the medical floor Cardiology consultation requested, we will follow input and recommendation We will request Pulmonary consultation CT chest without contrast Follow serology test to include rapid strep, influenza, SARS antigen, Streptococcus pneumoniae, Legionella antigen, mycoplasma pneumoniae Continue the patient on broad-spectrum IV antibiotics with azithromycin and Rocephin Speech evaluation Resume home medication to include Eliquis 5 mg p.o. b.i.d., metoprolol tartrate the 25 mg p.o. b.i.d., furosemide 20 mg p.o. every other day, amiodarone 100 mg p.o. daily Echocardiogram to evaluate ejection fraction NEURO: Minimize central acting medications as possible. Fall Precautions. Well lighted room through the day and minimize interruptions through the night to prevent acute delirium. PULMONARY: Supplemental 02 as needed BiPAP as necessary, for respiratory distress Titrate Fio2 to keep Spo2 > or = 90% DuoNebs and CPT as needed IS hourly while awake for pulmonary hygiene prn Out of bed to chair as tolerated Maintain aspiration precautions at all times CARDIOVASCULAR: Follow hemodynamics. Vital signs per facility protocol GI & NUTRITION: Continue nutritional support Aspirations precautions Prokinetic agents and laxatives as needed KIDNEYS & ELECTROLYTES: Strict monitoring of intake and output Daily weights Avoid nephrotoxic agents Monitor electrolytes and replace as needed Goal urine output of 30mL/hr or 0.5mL/kg/hr Medications to be dosed according to renal function. Avoid contrast if possible ENDOCRINE: Maintain blood glucose between 100-180 at all times. Insulin sliding scale for blood glucose management Hypoglycemia and hyperglycemia protocol in place INFECTIOUS DISEASE: Trend temperature, WBC and procalcitonin level Follow cultures, deescalate antibiotics as soon as possible. Panculture if new onset fever HEMATOLOGY & COAGULATION: Monitor H&H. Keep Hgb > 7 Transfuse 1 unit of PRBC for Hgb < 7 Transfuse 1 pack of platelets of platelets < 20, 000 Watch for any signs and symptoms of bleeding SKIN: Pressure ulcer prevention per facility protocol Specialty mattress as needed ORTHO/REHAB Continue PT/OT PRN: MEDICATIONS Tylenol 650 mg po every 4 hrs for fever zofran 4 mg IV every 6 hrs for n/v Hydralazine 5 mg IV every 4 hrs systolic pressure > 160 bowel regiment: lactulose 20 gm PO BID PRN constipation Supportive measures: Continue GI and DVT prophylaxis Disposition: Pending improvement in clinical condition. All questions answered time spent: > 35 min GILL,WORSHIP E MD Nov 08, 2024 15:17
--- NOTE | 2024-11-08 15:25 | NUR ---
PT LEFT FOR CT PE
[2024-11-08] MEDS ORDERED: PoTASSium chloRIDE 10MEQ/100ML 100 ML IV PRN (15:30)
[2024-11-08] MEDS ORDERED: IOHEXOL-350 50ML VIAL IV ONE (15:45)
--- NOTE | 2024-11-08 15:45 | NUR ---
RETURNED FROM CT PE
[2024-11-08 16:03] VITALS: BP 121/63; PULSE 76; RESP 18; TEMP 97.8
[2024-11-08 16:05] VITALS: O2SAT 98
--- NOTE | 2024-11-08 16:09 | HMCIMG ---
CT CHEST WITH CONTRAST INDICATION: Pneumonia TECHNIQUE: Routine axial images using 5 mm slice thickness were acquired from the lung apices to the bases after the administration of 50 mL of Isovue 370 IV contrast.Coronal and sagittal reformatted images acquired for interpretation. CT was performed with one or more of the following dose reduction techniques: Automated exposure control, adjustment of the mA and/or kV according to patient size, or use of iterative reconstruction technique. COMPARISON: 04/19/2014 FINDINGS: Median sternotomy wires are in appropriate alignment. The heart size is normal. Mitral valve prosthesis contributes to streak artifact. No pericardial effusion noted. The visualized great vessels and thoracic aorta are within normal limits. The trachea and airways are patent. Small right pleural effusion with subjacent passive opacities within the right middle lobe and right lower lobe. Linear scarring scattered throughout the left mid to lower lung. Several subcentimeter mediastinal lymph nodes without axillary, hilar, or mediastinal lymphadenopathy. No evidence for pneumothorax. Limited views of the upper abdomen appear normal. Visible osseous structures are intact. IMPRESSION: Small right pleural effusion with subjacent passive atelectasis.
[2024-11-08 16:20] LABS: INFLUENZA TYPE A Negative For Type A (NEGATIVE); INFLUENZA TYPE B Negative For Type B (NEGATIVE)
[2024-11-08 16:21] LABS: COVID19 (SARS ANTIGEN RAPID) PRESUMPTIVE NEGATIVE (NEGATIVE)
[2024-11-08] MEDS: AMIOdarone 200 MG TABLET PO ONE (18:13)
[2024-11-08] MEDS: cefTRIAXone 1G VIAL IVPB SCH (18:13)
[2024-11-08 20:00] VITALS: BP 128/60; PULSE 77; RESP 18; TEMP 98.1
[2024-11-08 20:45] VITALS: O2SAT 96
[2024-11-08] MEDS: APIXaban 5 MG TABLET PO SCH (21:05)
--- NOTE | 2024-11-08 23:58 | HMCSR ---
APPROVED REPORT EXAM: LIMITED Two-dimensional and M-mode echocardiogram with Doppler and color Doppler. Study Details: congenital heart defect, mitral valve regurgitation, congestive heart failure, atrial fibrillation, mitral valve repair on 10/19/2024 INDICATION ICD: Chest Pain 2D Dimensions LVED Vol(simp.)102.7 mL LVES Vol(simp.)43.6 mL LVEF(%, simp.)58 % LA ESV INDEX (BP)38.01 mL/m2 Deformation Strain Apical 4-19.0 % Apical 2-19.0 % Apical 3-18.0 % Global Strain-19.0 % M-Mode Dimensions EPSS1.0 cm Mitral Valve MV E Bfbf871.0 cm/sDECEL Gtvs208 msMV Peak GR21 mmHg MV A Vmax70.5 cm/sP 1/2 T91 msMV Mean GR8 mmHg E/A ratio2.9MVA (PHT)2.4 cm2 TDI E/E' Ygpybu20.8 Medial E' Peak V5.00 cm/s Left Ventricle The left ventricle is normal in size. There is paradoxical septal wall motion noted. The other velez are grossly normal in function. Mild concentric left ventricular hypertrophy. Left ventricular systol ic function is normal, estimated LVEF is 55 to 60%. Stage III diastolic dysfunction. Right Ventricle The right ventricle is normal size. The right ventricular systolic function is normal. Atria The left atrium is mildly dilated, 38 mL/m. The right atrium size is normal. Aortic Valve Aortic valve is trileaflet. No aortic regurgitation is present. There is no aortic valvular stenosis. Mitral Valve The mitral valve is s/p surgical repair with a annulopasty ring in place. There is restricted excursi on (opening) of the posterior leaflet. Moderate mitral regurgitation. Moderate mitral stenosis, MG 7m mHg, diastolic pressure half-time 91 ms Tricuspid Valve The tricuspid valve is normal in structure and function. Pulmonic Valve Pulmonic valve is not well visualized. Pericardium No pericardial effusion. Conclusion The left atrium is mildly dilated, 38 mL/m. Mild concentric left ventricular hypertrophy. There is paradoxical septal wall motion noted. The other velez are grossly normal in function. Left ventricular systolic function is normal, estimated LVEF is 55 to 60%. Stage III diastolic dysfunction. The mitral valve is s/p surgical repair with a annulopasty ring in place. There is restricted excursi on (opening) of the posterior leaflet. Moderate mitral stenosis, MG 7mmHg, diastolic pressure half-time 91 ms Moderate mitral regurgitation. No pericardial effusion. When compared to the patient's previous echocardiogram there is no significant change.
[2024-11-09] VITALS: BP 113/45; PULSE 61; RESP 18; TEMP 98.6
[2024-11-09 03:34] LABS: HEMATOCRIT 29.1 % (36-48); MEAN CORPUSCULAR HEMOGLOBIN 28.7 pg (27.0-33.0); MEAN CORPUSCULAR VOLUME 89.8 fL (79-99); RED BLOOD CELL COUNT(AUTO) 3.24 MIL/uL (4.00-5.50); RED CELL DISTRIBUTION WIDTH 14.8 % (11.0-15.5); WHITE BLOOD COUNT (AUTO) 5.6 K/uL (4.8-10.8)
[2024-11-09 03:50] LABS: ALBUMIN 3.2 g/dL (3.5-5.0); BILIRUBIN,TOTAL 0.3 mg/dL (0.2-1.0); CREATININE 0.7 mg/dL (0.5-1.0); POTASSIUM 4.1 mmol/L (3.5-5.1); TOTAL PROTEIN, SERUM 6.9 g/dL (6.0-8.3)
[2024-11-09 04:00] VITALS: BP 107/55; PULSE 66; RESP 18; TEMP 97.6
[2024-11-09 07:05] VITALS: BP 125/54; PULSE 72; RESP 20; TEMP 98.2
[2024-11-09 08:00] VITALS: O2SAT 96
[2024-11-09] MEDS: HONEY 1 APPL/ML TUBE TP SCH (10:00)
[2024-11-09 11:05] VITALS: BP 108/52; PULSE 59; RESP 20; TEMP 97.9
--- NOTE | 2024-11-09 12:45 | NUR ---
BEDSIDE SWALLOW EVAL COMPLETED. No s/s of aspiration. Recommend regular solids, thin liquids and pills whole with liquids as tolerated. NITROGLYCERIN NITRATOR OPERATOR BATCH reviewed results and recommendations with patient. NITROGLYCERIN NITRATOR OPERATOR BATCH educated patient on risks and consequences of aspiration. Speech therapy not warranted at this time. All questions answered. Addendum: 11/10/[address] [facility]ENNAR[facility] DOBBS Amended: Links added.
[2024-11-09] MEDS ORDERED: HONE44PA TP (12:52)
--- NOTE | 2024-11-09 13:25 | DS ---
Discharge Summary Hospital Course Summary: This is a 34-year-old female with past medical history of congenital heart defect, mitral valve regurgitation, congestive heart failure, atrial fibrillation, hyperlipidemia and hypertension who presents to the ED for complaints of intermittent chest pain. Patient reports she underwent a minimally invasive cardiac surgery for mitral valve repair on 10/19/2024 in [place]. 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 Seen and examined patient in the ER awake,alert,and coherent, comfortable. Patient denied fever,chills,nausea,vomiting and abdominal pain. Vital signs temperature 99.7, heart rate 94, blood pressure 168/83 saturation 99% on room air. Labs WBC 4.7, hemoglobin 9.2, hematocrit 28 and platelet count 242. Chemistries normal BNP 115 troponin 19. Chest x-ray result revealed mild right lower lung pulmonary infiltrates with small right pleural effusion with compressive atelectasis. While in the ER patient received Rocephin 1 g IV. During the course of the hospitalization echocardiogram was done, reported as follows: The left atrium is mildly dilated, 38 mL/m. Mild concentric left ventricular hypertrophy. There is paradoxical septal wall motion noted. The other velez are grossly normal in function. Left ventricular systolic function is normal, estimated LVEF is 55 to 60%. Stage III diastolic dysfunction. The mitral valve is s/p surgical repair with a annulopasty ring in place. There is restricted excursion (opening) of the posterior leaflet. Moderate mitral stenosis, MG 7mmHg, diastolic pressure half-time 91 ms Moderate mitral regurgitation. No pericardial effusion. CT chest without contrast was done, small right pleural effusion with subjacent passive atelectasis. Linear scarring scattered throughout the left mid to lower lung. Today the patient is hemodynamically stable, alert oriented x3, afebrile, saturating normal on room air. Denied chest pain, shortness shortness for norma th, no cough, no nausea, no vomiting, no abdominal discomfort, no diarrhea, no constipation, no melena, no hematochezia, no hematemesis, no hematuria, no dysuria. Patient to be discharged home today. [employer] Worker(s): Pulmonary Assessment/Plan: Final diagnosis Chest pain unspecified POA Small right pleural effusion with subjacent passive atelectasis, POA Community-acquired pneumoniae ruled out Acute urinary tract infection rule out POA Acute normocytic normochromic anemia POA Chronic diastolic CHF POA Recent minimally invasive mitral valve repair POA Hypertension POA Hyperlipidemia POA Atrial fibrillation on Eliquis POA Morbid obesity POA Erythema and draining serous to Post operative surgical incision sites History of genital heart defect POA Discharge Instructions: Patient to be discharged home today, to follow up with primary care physician as an outpatient and to return to the hospital for condition changes. Patient agreed with plan understood the information provided. Advised to continue home medications, prescription for antibiotics and to the pharmacy. She was advised to be compliant with the incentive spirometry as well. Home Medications: Reported Medications Atorvastatin Calcium (Atorvastatin Calcium) 20 Mg Tablet, 1 TAB PO HS for 30 Days, #30 TAB 0 Refills 11/08/24 Furosemide (Furosemide) 20 Mg Tablet, 1 TAB PO QODAY for 30 Days, #30 TAB 0 Refills 11/08/24 Amiodarone HCl (Amiodarone HCl) 100 Mg Tablet, 1 TAB PO DAILY for 30 Days, #30 TAB 0 Refills 11/08/24 Metoprolol Tartrate (Metoprolol Tartrate) 25 Mg Tablet, 1 TAB PO BID for 30 Days, #60 TAB 0 Refills 11/08/24 Apixaban (Eliquis) 5 Mg Tablet, 1 TAB PO BID for 30 Days, #60 TAB 0 Refills 11/08/24 Discontinued Reported Medications Sacubitril/Valsartan (Entresto 24 mg-26 mg Tablet) 24 Mg-26 Mg Tablet, 1 TAB PO BID for 30 Days, #60 TAB 0 Refills 09/21/24 Vit/Iron Fumarate/FA ( Vitamins Tablet) 1 Each Tablet, 1 EACH PO DAILY, TAB 09/30/15 Discontinued Scripts Metoprolol Succinate (Metoprolol Succinate) 50 Mg Tab.er.24h, 50 MG PO BID, #60 TAB Prov:MEDHAT ROSS MD 05/07/14 Furosemide (Lasix 20Mg Tab) 20 Mg Tablet, 20 MG GT DAILY, #30 TAB Prov:MEDHAT ROSS MD 05/07/14 Lisinopril (Lisinopril) 5 Mg Tablet, 5 MG PO DAILY, #30 TAB Prov:MEDHAT ROSS MD 05/07/14 Aspirin (Aspirin) 81 Mg Tab.chew, 81 MG PO DAILY, #30 TAB.CHEW Prov:MEDHAT ROSS MD 05/07/14 Time spent arranging discharge: 31-60 minutes FER GILL MD Nov 09, 2024 13:25
[2024-11-09] MEDS ORDERED: DOXY-466 PO (13:29)
[2024-11-09] MEDS ORDERED: CEFD300C3 PO (13:29)
--- NOTE | 2024-11-09 14:37 | CONS ---
[facility] CONSULTATION NOTE Date Patient Seen: Nov 09, 2024 Time of Visit: 1153 Supervising Physician: Dr. Ventura Reason for Consultation: Pneumonia Inpatient Consults: BIS PROBLEM LIST: Chest pain unspecified POA Right pleural effusion POA Suspected community-acquired pneumonia POA Acute urinary tract infection POA Acute normocytic normochromic anemia POA CHF POA Recent minimally invasive mitral valve repair POA Hypertension POA Hyperlipidemia POA Atrial fibrillation on Eliquis POA Morbid obesity POA Erythema and draining serous to Post operative surgical incision sites History of genital heart defect POA HPI: This is a 34-year-old female with past medical history of congenital heart defect, mitral valve regurgitation, congestive heart failure, atrial fibrillation, hyperlipidemia and hypertension who presents to the ED for complaints of intermittent chest pain which started at 5:30pm today while sitting down.Patient described pain started at her mid upper back and goes through her right chest and it is sharp in nature.Patient reports she underwent a minimally invasive cardiac surgery for mitral valve repair on 10/19/2024 in [place].Patient also reports he was seen at her [facility] specialist last Tuesday ,2 days ago and checked her surgical incision sites and was told to apply an tibiotic ointment,there are is red and oozing a scanty serous drain on her right upper quadrant under breast and left groin area.Patient also reports since surgery she has been having occasional dry cough and shortness of breath and she also mentioned she is not doing the Incentive Spirometry as she is supposed to. Seen and examined patient in the ER awake,alert,and coherent,appears comfortable.Patient denies fever,chills,nausea,vomiting and abdominal pain. Vital signs temperature 99.7, heart rate 94, blood pressure 168/83 saturation 99% on room air. Labs WBC 4.7, hemoglobin 9.2, hematocrit 28 and platelet count 242. Chemistries normal BNP 115 troponin 19. Urinalysis appears cloudy and with few bacteria and urine WBC 2-5. Chest x-ray result revealed mild right lower lung pulmonary infiltrates with small right pleural effusion with compressive atelectasis. While in the ER patient received Rocephin 1 g IV. We will admit patient for further medical management. Patient was seen and examined by bedside with family present. Patient is awake alert able to answer simple questions appropriately. Patient denies any chest pain or shortness of breadth. Patient is currently on room air is tolerating well. Patient denies any productive cough states has a little dry cough but nothing serious. Patient denies nausea vomiting or abdominal pain. Pulmonology were consulted for pneumonia. Thank you for allowing us to participate in the care of this patient we will continue to monitor while patient is in the hospital. Recommendations listed below PAST MEDICAL HX: see above PAST SURGICAL HX: noncontributory SOCIAL HISTORY: No tobacco, ETOH, or illicit drug use Coded Allergies: No Known Drug Allergies (Unverified Allergy, Unknown, 05/02/14) REVIEW OF SYSTEMS: 12 point ROS reviewed with patient. Pertinent positives mentioned above. Otherwise negative. PHYSICAL EXAM: GENERAL: alert, weak, awake oriented x 3 HEENT: EOMI, Sclera non icteric, moist mucosa NECK: Supple, no JVD, trachea midline LUNGS: Clear breath sounds bilaterally. No wheezes HEART: Regular rate and rhythm. Normal S1 and S2, without murmurs ABD: Abdomen soft, nontender. Bowel sounds present EXT: No clubbing cyanosis or edema NEURO: Alert and oriented to person, follows commands Vital Signs (last 8hr) Date Time Temp Pulse Resp B/P (MAP) Pulse Ox O2 Delivery O2 Flow Rate FiO2 11/09/24 11:05 97.9 59 20 108/52 100 Room Air 21 11/09/24 08:00 96 Room Air* 0 21 11/09/24 07:05 98.2 72 20 125/54 96 Room Air 21 LABS: Hematology Labs: Test 11/09/24 02:54 11/08/24 07:13 Range/Units White Blood Count 5.6 4.8-10.8 K/uL Red Blood Count 3.24 L 4.00-5.50 MIL/uL Hemoglobin 9.3 L 12.0-16.0 g/dL Hematocrit 29.1 L 36-48 % Mean Corpuscular Volume 89.8 79-99 fL Mean Corpuscular Hemoglobin 28.7 27.0-33.0 pg Mean Corpuscular Hemoglobin Concent 32.0 32.0-36.0 g/dL Red Cell Distribution Width 14.8 11.0-15.5 % Platelet Count 213 130-400 K/uL Mean Platelet Volume 8.7 7.5-10.5 fL Nucleated Red Blood Cells 0.0 0.0-0.19 % Immature Granulocyte % (Auto) 0.6 0-1 % Neutrophils (%) (Auto) 60.5 40.0-77.0 % Lymphocytes (%) (Auto) 20.4 L 21.0-51.0 % Monocytes (%) (Auto) 12.4 3.0-13.0 % Eosinophils (%) (Auto) 5.5 0.0-8.0 % Basophils (%) (Auto) 0.6 0.0-5.0 % Neutrophils # (Auto) 2.9 1.8-7.7 K/uL Lymphocytes # (Auto) 1.0 1.0-4.8 K/uL Monocytes # (Auto) 0.6 0.1-1.0 K/uL Eosinophils # (Auto) 0.26 0.00-0.70 K/uL Basophils # (Auto) 0.03 0.00-0.20 K/uL Absolute Immature Granulocyte (auto 0.03 0-1 K/uL Red Blood Cell Morphology See comments Chemistry Labs: Test 11/09/24 02:54 11/08/24 07:13 11/07/24 21:26 Range/Units Sodium Level 139 136-145 mmol/L Potassium Level 4.1 3.5-5.1 mmol/L Chloride Level 105 101-111 mmol/L Carbon Dioxide Level 28 21-32 mmol/L Blood Urea Nitrogen 8 7-18 mg/dL Creatinine 0.7 0.5-1.0 mg/dL Glomerular Filtration Rate Calc 116 >90 mL/min Random Glucose 94 70-105 mg/dL Total Calcium 8.4 L 8.5-10.1 mg/dL Magnesium Level 2.00 1.80-2.40 mg/dL Total Bilirubin 0.3 # 0.2-1.0 mg/dL Aspartate Amino Transf (AST/SGOT) 14 10-37 U/L Alanine Aminotransferase (ALT/SGPT) 17 12-78 U/L Alkaline Phosphatase 88 50-136 U/L Total Protein 6.9 6.0-8.3 g/dL Albumin 3.2 L 3.5-5.0 g/dL Procalcitonin < 0.05 L 0.05-0.5 ng/mL Iron Level 42 L 50-170 mcg/dL Total Iron Binding Capacity 303 250-450 mcg/dL Percent Iron Saturation 13.8 L 22-44 % Troponin I High Sensitivity 20 4-50 ng/L B-Type Natriuretic Peptide 109 H 0-100 pg/mL Triglycerides Level 83 30-200 mg/dL Cholesterol Level 97 <200 mg/dL LDL Cholesterol 55 0-99 mg/dL HDL Cholesterol 35 35-85 mg/dL Thyroid Stimulating Hormone (TSH) 2.63 # 0.36-3.74 uIU/mL Total Creatine Kinase 44 # 21-232 U/L Coagulation Labs: Test 11/07/24 21:26 Range/Units Prothrombin Time 11.8 H 9.6-11.6 SEC Prothromb Time International Ratio 1.13 0.85-1.15 Activated Partial Thromboplast Time 29.9 26.3-35.5 SEC DIAGNOSTICS / RADIOLOGY RESULTS: na PLAN CT scan reviewed by supervising physician Dr. Ventura, and small right effusion not enough fluid to tap Continue with current IV antibiotics Continue to monitor respiratory status and maintain adequate oxygenation Keep O2 sats greater or equal to 90% Aspiration precaution NEURO: Minimize central acting medications as possible. Maintain fall precautions, adequate lighting during the day PULMONARY: Supplemental 02 as needed. Maintain aspiration precautions at all times CARDIOVASCULAR: Follow hemodynamics. Vital signs per facility protocol GI & NUTRITION: Continue with nutritional support. Continue stool softeners and laxatives as needed. KIDNEYS & ELECTROLYTES: Strict monitoring of intake, output and overall fluid balance. Avoid nephrotoxic medications to the extent possible. Medications to be dosed according to renal function. Monitor electrolytes and replace as needed ENDOCRINE: Maintain blood glucose between 100-180 at all times. Hypoglycemia protocol in place INFECTIOUS DISEASE: Trend temperature, WBC and procalcitonin level Follow cultures, deescalate antibiotics as soon as possible. Panculture if new onset fever ONCOLOGY/HEMATOLOGY/COAGULATION: Monitor for s/s of bleeding Monitor hemoglobin, coagulation studies as needed SKIN: Pressure ulcer prevention per facility protocol Specialty mattress ORTHO/REHAB: Continue PT/OT Prophylaxis: Continue GI and DVT prophylaxis Code Status: Full Resuscitation Disposition: Per primary team Other: Case discussed with supervising physician plan of care agreed upon BETO DOWNING Nov 09, 2024 14:37
[2024-11-10] MEDS ORDERED: furoSEMIDE 20 MG TABLET PO SCH (09:00)
[2024-11-14 10:13] LABS: MYCOPLASMA GENITALIUM NAA Negative (Negative); UREAPLASMA SPP NAA Negative (Negative)
== END 2024-11-09 15:30 | disposition home or self-care (01) ==
LOC: EDH 21:06 → EDHIP 21:07 → INTOOBSV 21:07 → 3CH 11-08 16:03
PROVIDERS: ADMIT Internal Medicine; ATTEND Internal Medicine
DX: R07.89 Other chest pain (principal); J90 Pleural effusion, not elsewhere classified; N39.0 Urinary tract infection, site not specified; I05.9 Rheumatic mitral valve disease, unspecified; J18.9 Pneumonia, unspecified organism; I11.0 Hypertensive heart disease with heart failure; I50.32 Chronic diastolic (congestive) heart failure; E78.5 Hyperlipidemia, unspecified; D64.9 Anemia, unspecified; E66.01 Morbid (severe) obesity due to excess calories; I48.91 Unspecified atrial fibrillation; Z20.822 Contact with and (suspected) exposure to COVID-19; Z79.01 Long term (current) use of anticoagulants; Z98.890 Other specified postprocedural states; Z79.899 Other long term (current) drug therapy; Z68.34 Body mass index [BMI] 34.0-34.9, adult
CPT/HCPCS: 99285; 71045; 82550; 83735 ×2; 84484 ×3; 80048; 83880 ×2; 80305; 85025 ×2; 85610; 85730; 36415 ×3; 93005; 93308; 96365; 71260; 96367; 96375 ×2; 87426; 80061; 84443; 83540; 83550; 80053 ×2; 87070; 87076; 87804 ×2; 93356; 76376; 87798; 96376 ×3; 87449; 96366; 92610; 85027; 84145; J3490 ×3; J0696 ×2; J0456 ×2; J1940; Q9967; G0378